=== PATIENT | female | born 1995 | race African-American/Black ===

== ENCOUNTER 2022-11-26 22:31 | Emergency (ER) | payer SELFPAY ==
[2022-11-27] MEDS ORDERED: Morphine 4 MG/ML VIAL ONE (01:01)
== END 2022-11-27 01:33 | disposition home or self-care (01) ==
LOC: ERS 22:31
DX: S93.402A Sprain of unspecified ligament of left ankle, initial encounter (principal); Y04.8XXA Assault by other bodily force, initial encounter
CPT/HCPCS: 96372; J2270